=== PATIENT | male | born 1945 | race Caucasian/White ===

== ENCOUNTER 2016-06-21 11:53 | Emergency (ER) | payer OTHER ==
[2016-06-21 12:09] VITALS: BP 151/84; PULSE 63; RESP 18; TEMP 97; O2SAT 96
--- NOTE | 2016-06-21 12:20 | UCPHY ---
H & P Patient Type: New Chief Complaint Nursing Narrative: left eye is red and goopy, started this am after pt got to work Time Seen by Provider: 06/21/16 12:10 HPI/ROS: Chief complaint left eye irritation HPI: 70-year-old male with no significant medical history started having eye irritation and discharge this morning while at work. He has noted since then copious greenish yellowish discharge which is matting on his eyelids. He has a little bit of blurriness in his vision. It feels irritated be denies any pain. Does not wear contacts does wear reading glasses. No known recent ill contacts. No headache. Denies past medical history, takes no medications. No allergies to medications. Does not smoke, does drink occasional alcohol, denies any other recreational drug use. ROS: 10 point Review of Systems is negative except as noted in the HPI. Physical exam: General: Awake, alert, no acute distress Eyes: He has got copious purulent discharge matting his left eye closed. This is wiped away with a moist cough. He has got diffuse conjunctival injection. Anterior chamber is clear. He has no pain with consensual light reflex. Extraocular motions are intact. His no anterior auricular lymphadenopathy. No temporal artery tenderness. Skin: No rash - Medical/Surgical History Hx Asthma: No Hx Chronic Respiratory Disease: No Hx Diabetes: No Hx Cardiac Disease: No Hx Renal Disease: No Hx Cirrhosis: No Hx Alcoholism: No Hx HIV/AIDS: No Hx Splenectomy or Spleen Trauma: No Other PMH: denies - Family History Significant Family History: No pertinent family hx - Social History Smoking Status: Former smoker Constitutional: Initial Vital Signs Temperature (C) 36.1 C 06/21/16 12:08 Heart Rate 63 06/21/16 12:08 Respiratory Rate 18 06/21/16 12:08 Blood Pressure 151/84 H 06/21/16 12:08 O2 Sat (%) 96 06/21/16 12:08 O2 Delivery Mode Room Air Allergies/Adverse Reactions: No Known Allergies Allergy (Verified 06/21/16 12:08) Home Medications: Medication Instructions Recorded Ciprofloxacin [Ciloxan Opth Drops] 2 drops OP Q4 7 Days 06/21/16 Departure - Departure Disposition: Home, Routine, Self-Care Clinical Impression: Conjunctivitis Condition: Good Instructions: Conjunctivitis (ED) Additional Instructions: Wash your hands frequently with soap and water. Do not go to work until her symptoms have resolved. Follow up with Dr. Chirinos, ophthalmology in 3-4 days if symptoms are not improving. Referrals: NONE *PRIMARY CARE P,. [Primary Care Provider] - As per Instructions Emory Chirinos MD [Medical Doctor] - As per Instructions Prescriptions: Ciprofloxacin [Ciloxan Opth Drops] 2 drops OP Q4 7 Days - PQRS PQRS Measurement: 134: Depression screening and followup, PRIME MD-PHQ2 (12 years and older) Over the last 2 weeks, how often have you been bothered by any of the following problems? 1. Feeling down, depressed, or hopeless? 2. Little interest or pleasure in doing things? Patient answered no to both 1 and 2 130: Documentation of medications. Reviewed all patient medications, doses, route and frequency. 226: Do you smoke? No. 47: 65 and older: Advanced care planning. Patient designates surrogate decision maker as spouse . 51: 18 years old and older with diagnosis of COPD, spirometry performance. Patient has no history of COPD 52: 18 years old and older with COPD and symptoms of COPD or FEV1<60% predicted prescribed a B Agonist. Spirometry not performed; equipment not available.
== END 2016-06-21 12:43 | disposition home or self-care (01) ==
LOC: CED 11:53
DX: H10.9 Unspecified conjunctivitis (principal); Z87.891 Personal history of nicotine dependence
CPT/HCPCS: G0463-PO